=== PATIENT | male | born 1945 | race Caucasian/White ===

== ENCOUNTER 2016-09-02 08:31 | Emergency (ER) | payer MEDICARE ==
[2016-09-02] MEDS ORDERED: HYDROCODONE/ACETAMINOPHEN 5-325 MG TABLET PO ONE (09:00)
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
[2016-09-02 11:41] VITALS: BP 125/78
== END 2016-09-02 11:41 | disposition home or self-care (01) ==
LOC: ER 08:31
DX: S00.81XA Abrasion of other part of head, initial encounter (principal); S80.812A Abrasion, left lower leg, initial encounter; R51 Headache; V43.54XA Car driver injured in collision with van in traffic accident, initial encounter
CPT/HCPCS: 71020; 99284